=== PATIENT | male | born 1960 | race African-American/Black ===

== ENCOUNTER 2020-08-21 15:36 | Emergency (ER) | payer OTHER ==
[~2020-08-21] VITALS: Ht 170.2 cm; Wt 68.0 kg
[2020-08-21 15:41] VITALS: BP 164/116
--- NOTE | 2020-08-21 15:44 | NUR ---
PATIENT AMBULATED TO BED 07 WITH STEADY GAIT
--- NOTE | 2020-08-21 15:45 | NUR ---
60 YO M BIB SELF FOR C/C OF SORE THROAT, FEVER, AND SOB X1 WEEK. PT DENIES N/V/D. DENIES CP. DENIES COVID CONTACT. PT AFEBRILE AT THIS TIME. PLACED ON [employer]/PULSE [employer]X. BED LOCKED AND IN LOWEST POSITON. SIDE RAILS X1. MED HX: BLIND IN LEFT EYE, DEAF IN R EAR NKA
--- NOTE | 2020-08-21 15:48 | NUR ---
ERMD AT BEDSIDE EVALUATING PT
[2020-08-21] MEDS ORDERED: NACL 0.9% 1,000 ML IV ONE (15:50)
[2020-08-21] MEDS ORDERED: DEXAMETHASONE 10 MG/ML VIAL IVP ONE (15:50)
[2020-08-21] MEDS ORDERED: KETOROLAC 15 MG/ML VIAL IVP ONE (15:50)
[2020-08-21 16:08] LABS: BASOPHILS # (AUTO) 0.1 K/uL (0.00-0.22); BASOPHILS % (AUTO) 1.3 % (0.0-2.0); EOSINOPHILS % (AUTO) 0.6 % (0.0-4.0); HEMATOCRIT 45.3 % (36-52); LYMPHOCYTES % (AUTO) 23.1 % (20.5-51.1); MEAN CORPUSCULAR HEMOGLOBIN 29 pg (27-31); MEAN CORPUSCULAR HGB CONC 33 g/dL (33-37); MEAN CORPUSCULAR VOLUME 86.2 fL (80-94); MONOCYTES # (AUTO) 0.3 K/uL (0.8-1.0); MONOCYTES % (AUTO) 7.5 % (1.7-9.3); NEUTROPHILS # (AUTO) 3.1 K/uL (1.8-7.7); NEUTROPHILS % (AUTO) 67.5 % (42.2-75.2); PLATELET COUNT (AUTO) 299 K/uL (140-450); RED BLOOD CELL COUNT(AUTO) 5.26 MIL/uL (4.20-6.10); RED CELL DISTRIBUTION WIDTH 15.2 % (11.6-13.7); WHITE BLOOD COUNT (AUTO) 4.5 K/uL (4.8-10.8)
--- NOTE | 2020-08-21 16:13 | NUR ---
EKG AT BEDSIDE
--- NOTE | 2020-08-21 16:13 | NUR ---
RAD AT BEDSIDE
--- NOTE | 2020-08-21 16:18 | NUR ---
REPORT GIVEN TO JASON CORRALES. TRANSFER OF CARE AT THIS TIME.
[2020-08-21 16:24] LABS: ANION GAP 17.3 (8-16); CARBON DIOXIDE 25.3 mmol/L (21-32); CREATININE 1.5 mg/dL (0.6-1.3); POTASSIUM 3.6 mmol/L (3.5-5.1)
[2020-08-21 18:30] VITALS: BP 170/101
--- NOTE | 2020-08-21 18:30 | NUR ---
Patient discharged with v/s stable. Written and verbal after care instructions given and explained. Patient verbalized understanding. Ambulatory with steady gait. All questions addressed prior to discharge. Advised to follow up with PMD.
== END 2020-08-21 18:30 | disposition home or self-care (01) ==
LOC: MED 15:36
DX: N17.9 Acute kidney failure, unspecified (principal); J02.9 Acute pharyngitis, unspecified; Z20.822 Contact with and (suspected) exposure to COVID-19
CPT/HCPCS: 71045; 80048; 84484; 85025; 87081; 93005; 96361; 96374; 96375; 99285; J1100; J1885; U0003